=== PATIENT | male | born 1945 | race Caucasian/White ===

== ENCOUNTER → 2016-11-16 | Outpatient (CLI) | payer MEDICARE ==
[~2016-11-16] MED LIST: ACTOS30 MG PO; ASPIRIN81 M1 PO; ASPIRIN81 M2 PO; BENICAR PO; CATAPRES0.1 MG PO; CENTRUM SILVER PO; CIPRO250 MG; CLONIDINE PO; DESYREL50 MG PO; DIOVAN320 MG PO; DUTASTERIDE0.5 MG PO; GABAPENTIN300 M2; GLUCOPHAGE500 M1; GLUCOPHAGE500 MG PO; GLUCOVANCE 5/501 TA2 PO; GLUMETZA1000 MG/BO PO; HYDROCHLOROTHIA25 MG PO; INVOKANA300 MG PO; JALYN 0.5-0.41 EACH PO; LANTUS100 U/M1 SUBQ; LANTUS100 U/ML SQ; LIPITOR20 MG PO; LYRICA50 MG PO; NASONEX17 GM; NEURONTIN300 MG PO; PERCOCET5/325; TAMSULOSIN HCL0.4 MG PO; TOUJEO SOL300 UNIT/1 SUBQ; TRICOR145 MG PO; ZOLOFT PO; ZOLOFT100 MG PO
--- NOTE | ~2016-11-16 | CR7 ---
[facility] A Service of [facility] [place] RADIOLOGY TEXT RESULTS PATIENT: JAC MINOR SR [facility] [birth year] UNIT #: [id number] AGE: [address]: Elver Moore MD SEX: M ORDER DR: [id number] [facility] [address] [place], [place] [address] [id number] O MR#: [id number] Acc #: [id number] NAME: JAC MINOR : 1945 SEX: M STUDY DATE/TIME: 11/16/2016 12:34 UNIT: [facility] ROOM: STUDY DESCRIPTION: CR Abdomen Single AP View Attending Physician: Elver Moore M.D. Ordering Physician: Elver Moore M.D. Primary Care Physician: Jeremías Urbano M.D. MEDICAL IMAGING REPORT This report is preliminary unless electronic signature is present EXAM AP abdomen, 11/16/2016 HISTORY History of right-side abdominal pain for 2 weeks. History of kidney stones. COMPARISON CT abdomen and pelvis without contrast 11/16/2016. AP abdomen 05/05/2012. FINDINGS Portions of the kidneys are largely obscured by air and stool within the superimposed colon. Multiple round calcifications are seen in the right upper quadrant of the abdomen thought to correspond to gallstones seen to better advantage on previous CT. The largest of these gallstones measures about 1 cm. A tiny nonobstructing stone is seen in the left lower renal pole on today's CT has no definite plain film correlate. No ureteral stone is identified, either. Nonspecific but nonobstructive bowel gas pattern. Marginal osteophyte formation is present in the lumbar spine. IMPRESSION 1. Multiple round calcifications in the right upper quadrant of the abdomen thought to correspond to gallstones seen on today's CT abdomen. 2. A tiny nonobstructing stone seen within the left kidney on today's CT abdomen has no plain film correlate. 3. No ureteral stone or acute abnormality is seen. Dictated by... Claudine Razo M.D. [facility] A Service of [facility] RADIOLOGY TEXT RESULTS PATIENT: JAC MINOR SR LOCATION: [facility] : 47 UNIT #: [id number] AGE: [address]: Elver Moore MD SEX: M ORDER DR: THIS IS AN ELECTRONICALLY VERIFIED REPORT Claudine Razo M.D. at 11/17/2016 10:40 AM Isaura TD: 11/16/2016 21:39 JOB #: [id number] MEDICAL IMAGING REPORT Page 1 of 1 COPY
--- NOTE | ~2016-11-16 | CT4 ---
[facility] A Service of [facility] RADIOLOGY TEXT RESULTS PATIENT: JAC MINOR SR LOCATION: [facility] : [birth year] UNIT #: [id number] AGE: [address]: Elver Moore MD SEX: M ORDER DR: [id number] [facility] [address] [place], [place] [address] [id number] O MR#: [id number] [facility] #: [id number] NAME: JAC MINOR : 1945 SEX: M STUDY DATE/TIME: 11/16/2016 13:13 UNIT: [facility] ROOM: STUDY DESCRIPTION: CT Abd and Pelv Wo Cont Attending Physician: Elver Moore M.D. Ordering Physician: Elver Moore M.D. Primary Care Physician: Jeremías Urbano M.D. MEDICAL IMAGING REPORT This report is preliminary unless electronic signature is present EXAM CT of the abdomen and pelvis without contrast. INDICATION Right flank pain for the past 2-3 weeks. Previous history of kidney stones. PROCEDURE Unenhanced CT of the abdomen and pelvis. This CT exam was performed with one or more of the following radiation dose reduction techniques: automatic exposure control, adjustment of mA and/or kV according to patient size, and iterative reconstruction. COMPARISON 03/06/15 FINDINGS ABDOMEN WITHOUT CONTRAST: Included lung bases are clear. 1.3 cm cyst at the dome of the liver. The spleen, adrenal glands, pancreas have an unremarkable unenhanced appearance. There are 2 small nonobstructing calculi in the left kidney measuring 2-3 mm. No radiodense ureteral calculus or hydronephrosis. There are several stones in the gallbladder, but no evidence for inflammation. The bowel loops are nondilated. Appendix is normal. PELVIS WITHOUT CONTRAST: No pelvic mass or fluid. No radiodense bladder calculus. No aggressive appearing bone lesion. IMPRESSION 1. No acute findings. 2. Two small nonobstructing calculi in the left kidney. 3. Left renal cysts, very similar to the prior study. [facility] A Service of [facility] RADIOLOGY TEXT RESULTS PATIENT: JAC MINOR SR LOCATION: [facility] : 47 UNIT #: [id number] AGE: [address]: Elver Moore MD SEX: M ORDER DR: 4. Uncomplicated cholelithiasis. Dictated by... John Cruz M.D. THIS IS AN ELECTRONICALLY VERIFIED REPORT John Cruz M.D. at 11/17/2016 2:01 PM JUDY/fernando TD: 11/16/2016 19:31 JOB #: [id number] MEDICAL IMAGING REPORT Page 1 of 1 COPY
== END | disposition home or self-care (01) ==
LOC: CCAT 12:18
DX: N20.0 Calculus of kidney (principal); N28.1 Cyst of kidney, acquired; K80.20 Calculus of gallbladder without cholecystitis without obstruction
CPT/HCPCS: 74000; 74176